=== PATIENT | female | born 1970 | race Two or more races ===

== ENCOUNTER 2016-12-13 08:24 | Inpatient (IN) | payer OTHER ==
[2016-12-13 10:34] VITALS: BMI 23.6
--- NOTE | 2016-12-13 12:00 | HP ---
CIWA Score - CIWA Score Nausea/Vomitin Muscle Tremors: 3 Anxiety: 3 Agitation: 3 Paroxysmal Sweats: 2 Orientation: 0-Oriented Tacttile Disturbances: 2-Mild Itch/Numbness/Burn Auditory Disturbances: 2-Mild Harshness/Frighten Visual Disturbances: 2-Mild Sensitivity Headache: 2-Mild CIWA-Ar Total Score: 22 Admission ROS BHS - HPI Chief Complaint: I NEED HELP TO STOP DRINKING ALCOHOL,COCAINE AND MARIJUANA Allergies/Adverse Reactions: Allergies Allergy/AdvReac Type Severity Reaction Status Date / Time green pepper Allergy Severe Swelling Verified 12/13/16 10:53 No Known Drug Allergies Allergy Verified 12/13/16 10:53 barbecue sauce Allergy Severe Swelling Uncoded 12/13/16 10:53 History of Present Illness: HIS 46 YEARS OLD FEMALE WITH ALCOHOL,COCAINE AND MARIJUANA DEPENDENCE, WITHDRAWAL SYMPTOM,NEVER BEEN IN DETOX BEFORE SYNCOPE ALCOHOL RELATED SCHIZOPHRENIA ,PTSD NICOTINE DEPENDENCE Exam Limitations: No Limitations - Ebola screening Have you traveled outside of the country in the last 21 days: No Have you had contact with anyone from an Ebola affected area: No Have you been sick,other than usual withdrawal symptoms: No - Review of Systems Constitutional: Chills, Loss of Appetite, Malaise, Night Sweats, Changes in sleep, Weakness, Unintentional Wgt. Loss EENT: reports: Nose Congestion Respiratory: reports: No Symptoms reported Cardiac: reports: No Symptoms Reported, See HPI, Chest Pain, Edema GI: reports: Diarrhea, Nausea, Poor Appetite : reports: No Symptoms Reported Musculoskeletal: reports: Back Pain, Muscle Pain Integumentary: reports: Dryness Neuro: reports: Headache, Tremors Endocrine: reports: No Symptoms Reported Hematology: reports: No Symptoms Reported Psychiatric: reports: Depressed (SCHIZOPHRENIA,PTSD) Patient History - Patient Medical History Hx Anemia: No Hx Asthma: No Hx Chronic Obstructive Pulmonary Disease (COPD): No Hx Cancer: No Hx Cardiac Disorders: No Hx Congestive Heart Failure: No Hx Hypertension: No Hx Hypercholesterolemia: No Hx Pacemaker: No HX Cerebrovascular Accident: No Hx Seizures: No Hx Dementia: No Hx Diabetes: No Hx Gastrointestinal Disorders: No Hx Liver Disease: No Hx Genitourinary Disorders: No Hx Sexually Transmitted Disorders: No Hx Renal Disease (ESRD): No Hx Thyroid Disease: No Hx Human Immunodeficiency Virus (HIV): No (LAST IN 12/06/16 NEGATIVE) Hx Hepatitis C: No Hx Depression: Yes Hx Suicide Attempt: Yes (Tried to overdose in 1991) Hx Bipolar Disorder: No Hx Schizophrenia: Yes Other Medical History: NO SUICIDAL,NO HOMICIDAL - Patient Surgical History Past Surgical History: Yes Other Surgical History: Tubal ligation in 1996 - PPD History Previous Implant?: Yes Documented Results: Negative w/proof Implanted On Prior [facility] Admission?: No PPD to be Administered?: No - Reproductive History Patient is a Female of Child Bearing Age (11 -55 yrs old): Yes Last Menstrual Period: 12/05/16 Patient : No - Smoking Cessation Smoking history: Current every day smoker Have you smoked in the past 12 months: Yes Aproximately how many cigarettes per day: 20 Hx Chewing Tobacco Use: No Initiated information on smoking cessation: Yes 'Breaking Loose' booklet given: 12/13/16 - Substance & Tx. History Hx Alcohol Use: Yes Hx Substance Use: Yes Substance Use Type: Alcohol, Cocaine, Marijuana Hx Substance Use Treatment: No - Substances Abused Alcohol Route: Oral Frequency: Daily Amount used: 6pk beer Age of first use: 15 Date of Last Use: 12/12/16 Crack Route: Smoking Frequency: Daily Amount used: $100-200 Age of first use: 27 Date of Last Use: 12/13/16 Marijuana/Hashish Route: Smoking Frequency: 1-2 times per week Amount used: 1 blunt Age of first use: 12 Date of Last Use: 12/12/16 Family Disease History - Family Disease History Family History: Denies Admission Physical Exam BHS - Vital Signs Vital Signs: Vital Signs - 24 hr 12/13/16 10:31 Temperature 97.5 F L Pulse Rate 70 Respiratory 18 Rate Blood Pressure 131/77 - Physical General Appearance: Yes: Moderate Distress, Tremorous, Irritable, Sweating, Anxious HEENTM: Yes: Nasal Congestion Respiratory: Yes: Lungs Clear Neck: Yes: Within Normal Limits Breast: Yes: Breast Exam Deferred Cardiology: Yes: Within Normal Limits, Regular Rhythm, Regular Rate, S1, S2 Abdominal: Yes: Within Normal Limits, Normal Bowel Sounds, Non Tender, Flat, Soft Genitourinary: Yes: Within Normal Limits Back: Yes: Muscle Spasm Musculoskeletal: Yes: Back pain, Muscle Pain Extremities: Yes: Tremors Neurological: Yes: 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, Fully Oriented, Alert, Motor Strength 5/5 Integumentary: Yes: Dry Lymphatic: Yes: Within Normal Limits - Diagnostic (1) Alcohol dependence with uncomplicated withdrawal Current Visit: Yes Status: Acute (2) Cocaine dependence Current Visit: Yes Status: Acute (3) Cannabis dependence Current Visit: Yes Status: Acute (4) Syncope Current Visit: Yes Status: Acute (5) Schizophrenia Current Visit: Yes Status: Acute (6) Nicotine dependence Current Visit: Yes Status: Acute Cleared for Admission [facility] - Detox or Rehab [facility] Level of Care: Medically Managed Detox Regimen/Protocol: Librium [facility] Breath Alcohol Content Breath Alcohol Content: 0 Urine Pregancy Test - Result Urine Test Results: Negative- NO Line Present Urine Drug Screen - Results Drug Screen Negative: No Urine Drug Screen Results: THC-Marijuana, HENRY-Cocaine
[2016-12-13] MEDS ORDERED: ACETAMINOPHEN 325 MG TABLET (FP) PO PRN (12:07)
[2016-12-13] MEDS ORDERED: guaiFENesin/D-METHORPHAN HB 10 ML UNIT-DOSE CUPS PO PRN (12:07)
[2016-12-13] MEDS ORDERED: hydrOXYzine PAMOATE 25 MG CAPSULE (FP) PO PRN (12:07)
[2016-12-13] MEDS ORDERED: chlordiazePOXIDE HCL 25 MG CAPSULE PO PRN (12:07)
[2016-12-13] MEDS ORDERED: P-EPHED 60MG/TRIPROLIDI 2.5MG TABLET PO PRN (12:07)
[2016-12-13] MEDS ORDERED: MAGNESIUM HYDROX 2400MG/30ML ORAL SUSPENSION 30 ML CUP PO PRN (12:07)
[2016-12-13] MEDS ORDERED: MAG HYDROX/AL HYDROX/SIMETH 30 ML UNIT-DOSE CUP PO PRN (12:07)
[2016-12-13] MEDS ORDERED: MENTHOL/PHENOL 1 EACH UD MM PRN (12:07)
[2016-12-13] MEDS ORDERED: LOPERAMIDE HCL 2 MG CAPSULE PO PRN (12:07)
[2016-12-13] MEDS ORDERED: MAGNESIUM CITRATE 300 ML BOTTLE PO PRN (12:07)
[2016-12-13] MEDS ORDERED: diphenhydrAMINE HCL 50 MG CAPSULE PO PRN (12:07)
[2016-12-13] MEDS ORDERED: IBUPROFEN 400 MG TABLET (FP) PO PRN (12:07)
[2016-12-13] MEDS ORDERED: chlordiazePOXIDE HCL 25 MG CAPSULE PO ONE (12:16)
--- NOTE | 2016-12-13 13:39 | CONSULT ---
[facility] Psychiatric Consult - Data Date of interview: 12/13/16 Admission source: [facility] Identifying data: This is 46 years old female with psychiatric hospitalization history , history of Schizophrenia, intoxicated with: Alcohol, Cannabis, Crack and Nicotine Substance Abuse History: Smoking history: Current every day smoker. Have you smoked in the past 12 months: Yes. Aproximately how many cigarettes per day: 20. Hx Chewing Tobacco Use: No. Initiated information on smoking cessation: Yes. 'Breaking Loose' booklet given: 12/13/16. - Substance & Tx. History. Hx Alcohol Use: Yes. Hx Substance Use: Yes. Substance Use Type: Alcohol, Cocaine , Marijuana. Hx Substance Use Treatment: No. - Substances Abused. Alcohol. Route: Oral. Frequency: Daily. Amount used: 6pk beer. Age of first use: 15. Date of Last Use: 12/12/16. Crack. Route: Smoking. Frequency: Daily. Amount used: $100-200. Age of first use: 27. Date of Last Use: . Marijuana/Hashish. Route: Smoking. Frequency: 1-2 times per week. Amount used: 1 blunt. Age of first use: 12. Date of Last Use: 12/12/16 Medical History: Syncope history, Psychiatric History: Patient reports history of Schizophrenia with most recent psyhiatric hospitalization on more then 5 years ago, currently stable on: Seroqiel 50mg poqd. Haldolo 1mg po qhs. Vistaril 100mg po qhs Physical/Sexual Abuse/Trauma History: Denies Additional Comment: Seroqiel 50mg poqd. Haldolo 1mg po qhs. Vistaril 100mg po qhs Mental Status Exam - Mental Status Exam Alert and Oriented to: Person Cognitive Function: Fair Patient Appearance: Unkempt Mood: Sad Affect: Flat Patient Behavior: Sedated Speech Pattern: Delayed Voice Loudness: Mildly Soft/Quiet Thought Process: Circumstantial Thought Disorder: Being Controlled Hallucinations: Denies Suicidal Ideation: Denies Homicidal Ideation: Denies Insight/Judgement: Fair Sleep: Difficulty falling asleep Appetite: Weight loss Muscle strength/Tone: Normal Gait/Station: Shuffling Additional Comments: Seroqiel 50mg poqd. Haldolo 1mg po qhs. Vistaril 100mg po qhs Psychiatric Findings - Problem List ([place] 1, 2,3) (1) Alcohol dependence with uncomplicated withdrawal Current Visit: Yes Status: Acute (2) Cannabis dependence Current Visit: Yes Status: Acute (3) Cocaine dependence Current Visit: Yes Status: Acute (4) Nicotine dependence Current Visit: Yes Status: Acute (5) Schizophrenia Current Visit: Yes Status: Acute (6) Drug-induced mood disorder Current Visit: Yes Status: Acute - Initial Treatment Plan Initial Treatment Plan: Seroqiel 50mg poqd. Haldolo 1mg po qhs. Vistaril 100mg po qhs
[2016-12-13 15:29] LABS: URINE APPEARANCE SLCLOUDY; URINE BILIRUBIN NEGATIVE (NEGATIVE); URINE COLOR YELLOW; URINE GLUCOSE (UA) NEGATIVE (NEGATIVE); URINE KETONE NEGATIVE (NEGATIVE); URINE NITRITE NEGATIVE (NEGATIVE); URINE PROTEIN NEGATIVE (NEGATIVE); URINE UROBILINOGEN NEGATIVE E.U./dl (0.2-1.0)
[2016-12-13 15:30] LABS: URINE BLOOD 2+ (NEGATIVE); URINE LEUK ESTERASE TRACE (NEGATIVE)
[2016-12-13 15:38] LABS: URINE MUCUS RARE; URINE RBC 5 /hpf (0-3); URINE WBC 4 /hpf (3-5)
[2016-12-13] MEDS: chlordiazePOXIDE HCL 25 MG CAPSULE PO SCH ×2 (17:33→22:18)
[2016-12-13] MEDS: THIAMINE HCL 100 MG TABLET (FP) PO SCH (22:18)
[2016-12-13] MEDS: hydrOXYzine PAMOATE 50 MG CAPSULE (FP) PO SCH (22:18)
[2016-12-13] MEDS: HALOPERIDOL 1 MG TABLET (FP) PO PRN (22:20)
[2016-12-14] MEDS: chlordiazePOXIDE HCL 25 MG CAPSULE PO SCH ×4 (05:16→22:17)
[2016-12-14 10:01] LABS: MCH 21.3 pg (25.7-33.7); MCHC 30.1 g/dl (32.0-36.0); MEAN CELL VOLUME 70.5 fl (80-96); MEAN PLT VOLUME 9.2 fl (7.5-11.1); PLATELET COUNT 249 K/MM3 (134-434); RDW 22.7 % (11.6-15.6); WHITE BLOOD COUNT 7.3 K/mm3 (4.0-10.0)
[2016-12-14 10:12] LABS: ALBUMIN 3.4 g/dl (3.4-5.0); CALCIUM 8.7 mg/dL (8.5-10.1)
[2016-12-14] MEDS: QUEtiapine FUMARATE 50 MG TABLET PO SCH (10:16)
[2016-12-14] MEDS: PRENATAL VITAMINS W/ FOLIC ACID TABLET (FP) PO SCH (10:18)
[2016-12-14 10:22] LABS: BILIRUBIN,TOTAL 0.2 mg/dL (0.2-1.0); CREATININE 1.1 mg/dL (0.55-1.02); TOT PROT 7.1 g/dl (6.4-8.2)
--- NOTE | 2016-12-14 10:49 | PN ---
S CIWA - CIWA Score Nausea/Vomitin Muscle Tremors: 3 Anxiety: 3 Agitation: 3 Paroxysmal Sweats: 1-Minimal Palms Moist Orientation: 0-Oriented Tacttile Disturbances: 1-Very Mild Itch/Numbness Auditory Disturbances: 1-Very Mild Visual Disturbances: 1-Very Mild Sensitivity Headache: 2-Mild CIWA-Ar Total Score: 18 BHS Progress Note (SOAP) Subjective: ALERT,IRRITABLE,ANXIOUS,INTERRUPTED SLEEP,TREMOR,PAIN IN THE BODY Objective: 12/14/16 10:46 Vital Signs Temperature 97.9 F 12/14/16 10:16 Pulse Rate 69 12/14/16 10:16 Respiratory Rate 18 12/14/16 10:16 Blood Pressure 125/77 12/14/16 10:16 O2 Sat by Pulse Oximetry (%) EKG NSR WITH SINUS ARRHYTHMIA NO CHEST PAIN,NO SOB,NO DIZZINESS Laboratory Last Values WBC 7.3 K/mm3 (4.0-10.0) 12/14/16 06:30 RBC 3.95 M/mm3 (3.60-5.2) 12/14/16 06:30 Hgb 8.4 GM/dL (10.7-15.3) L 12/14/16 06:30 Hct 27.8 % (32.4-45.2) L 12/14/16 06:30 MCV 70.5 fl (80-96) L 12/14/16 06:30 MCHC 30.1 g/dl (32.0-36.0) L 12/14/16 06:30 RDW 22.7 % (11.6-15.6) H 12/14/16 06:30 Plt Count 249 K/MM3 (134-434) 12/14/16 06:30 MPV 9.2 fl (7.5-11.1) 12/14/16 06:30 Sodium 146 mmol/L (136-145) H 12/14/16 06:30 Potassium 3.9 mmol/L (3.5-5.1) 12/14/16 06:30 Chloride 110 mmol/L (98-107) H 12/14/16 06:30 Carbon Dioxide 28 mmol/L (21-32) 12/14/16 06:30 Anion Gap 8 (8-16) 12/14/16 06:30 BUN 14 mg/dL (7-18) 12/14/16 06:30 Creatinine 1.1 mg/dL (0.55-1.02) H 12/14/16 06:30 Creat Clearance w eGFR 53.24 (>60) 12/14/16 06:30 Random Glucose 97 mg/dL (74-106) 12/14/16 06:30 Calcium 8.7 mg/dL (8.5-10.1) 12/14/16 06:30 Total Bilirubin 0.2 mg/dL (0.2-1.0) 12/14/16 06:30 AST 24 U/L (15-37) 12/14/16 06:30 ALT 24 U/L (12-78) 12/14/16 06:30 Alkaline Phosphatase 56 U/L (45-117) 12/14/16 06:30 Total Protein 7.1 g/dl (6.4-8.2) 12/14/16 06:30 Albumin 3.4 g/dl (3.4-5.0) 12/14/16 06:30 Urine Color Yellow 12/13/16 13:10 Urine Appearance Slcloudy 12/13/16 13:10 Urine pH 5.0 (5.0-8.0) 12/13/16 13:10 Ur Specific [place] 1.027 (1.001-1.035) 12/13/16 13:10 Urine Protein Negative (NEGATIVE) 12/13/16 13:10 Urine Glucose (UA) Negative (NEGATIVE) 12/13/16 13:10 Urine Ketones Negative (NEGATIVE) 12/13/16 13:10 Urine Blood 2+ (NEGATIVE) H 12/13/16 13:10 Urine Nitrite Negative (NEGATIVE) 12/13/16 13:10 Urine Bilirubin Negative (NEGATIVE) 12/13/16 13:10 Urine Urobilinogen Negative E.U./dl (0.2-1.0) 12/13/16 13:10 Ur Leukocyte Esterase Trace (NEGATIVE) H 12/13/16 13:10 Urine RBC 5 /hpf (0-3) 12/13/16 13:10 Urine WBC 4 /hpf (3-5) 12/13/16 13:10 Ur Epithelial Cells Few /hpf (FEW) 12/13/16 13:10 Urine Mucus Rare 12/13/16 13:10 Assessment: 12/14/16 10:48 WITHDRAWAL SYMPTOM Plan: CONTINUE DETOX,HISTORY OF ANEMIA,FERROUS SULFATE 325 MG PO TID
[2016-12-14 10:51] LABS: HYPOCHROMIA 2+; PLATELET ESTIMATE ADEQUATE (NORMAL); POLYCHROMASIA FEW
[2016-12-14 10:52] LABS: ANISOCYTOSIS 3+; BURR CELLS F; OVALOCYTES FEW
--- NOTE | 2016-12-14 11:13 | EKG ---
Test Reason : Blood Pressure : / mmHG Vent. Rate : 065 BPM Atrial Rate : 065 BPM P-R Int : 158 ms QRS Dur : 090 ms QT Int : 390 ms P-R-T Axes : 056 050 056 degrees QTc Int : 405 ms NORMAL SINUS RHYTHM WITH SINUS ARRHYTHMIA MINIMAL VOLTAGE CRITERIA FOR LVH, MAY BE NORMAL VARIANT NONSPECIFIC T WAVE ABNORMALITY ABNORMAL ECG NO PREVIOUS ECGS AVAILABLE Confirmed by ZEINA IRBY MD ([id number]) on 12/14/2016 11:13:31 AM Referred By: Confirmed By:ZEINA IRBY MD
[2016-12-14] MEDS: FERROUS SO4 325 MG TABLET (FP) PO SCH ×2 (12:55→18:00)
[2016-12-14] MEDS: THIAMINE HCL 100 MG TABLET (FP) PO SCH (22:16)
[2016-12-14] MEDS: hydrOXYzine PAMOATE 50 MG CAPSULE (FP) PO SCH (22:16)
[2016-12-14] MEDS: HALOPERIDOL 1 MG TABLET (FP) PO PRN (22:16)
[2016-12-15] MEDS: chlordiazePOXIDE HCL 25 MG CAPSULE PO SCH ×2 (05:29→10:07)
[2016-12-15] MEDS: FERROUS SO4 325 MG TABLET (FP) PO SCH ×3 (07:24→18:17)
--- NOTE | 2016-12-15 09:31 | PN ---
S CIWA - CIWA Score Nausea/Vomitin Muscle Tremors: 3 Anxiety: 2 Agitation: 2 Paroxysmal Sweats: 1-Minimal Palms Moist Orientation: 0-Oriented Tacttile Disturbances: 1-Very Mild Itch/Numbness Auditory Disturbances: 1-Very Mild Visual Disturbances: 1-Very Mild Sensitivity Headache: 2-Mild CIWA-Ar Total Score: 16 S Progress Note (SOAP) Subjective: ALERT,IRRITABLE,ANXIOUS,INTERRUPTED SLEEP,TREMOR Objective: 12/15/16 09:28 Vital Signs Temperature 97.1 F L 12/15/16 06:00 Pulse Rate 63 12/15/16 06:00 Respiratory Rate 16 12/15/16 06:00 Blood Pressure 129/78 12/15/16 06:00 O2 Sat by Pulse Oximetry (%) Laboratory Last Values WBC 7.3 K/mm3 (4.0-10.0) 12/14/16 06:30 Corrected WBC (auto) 3.65 K/mm3 12/14/16 06:30 RBC 3.95 M/mm3 (3.60-5.2) 12/14/16 06:30 Hgb 8.4 GM/dL (10.7-15.3) L 12/14/16 06:30 Hct 27.8 % (32.4-45.2) L 12/14/16 06:30 MCV 70.5 fl (80-96) L 12/14/16 06:30 MCHC 30.1 g/dl (32.0-36.0) L 12/14/16 06:30 RDW 22.7 % (11.6-15.6) H 12/14/16 06:30 Plt Count 249 K/MM3 (134-434) 12/14/16 06:30 MPV 9.2 fl (7.5-11.1) 12/14/16 06:30 Nucleated RBCs Outpatient Scheduler 12/14/16 06:30 Platelet Estimate Adequate (NORMAL) 12/14/16 06:30 Platelet Comment No clumping noted 12/14/16 06:30 Polychromasia Few 12/14/16 06:30 Hypochromic-Microcytic 2+ 12/14/16 06:30 Anisocytosis 3+ 12/14/16 06:30 Ovalocytes Few 12/14/16 06:30 [place] Cells F 12/14/16 06:30 Sodium 146 mmol/L (136-145) H 12/14/16 06:30 Potassium 3.9 mmol/L (3.5-5.1) 12/14/16 06:30 Chloride 110 mmol/L (98-107) H 12/14/16 06:30 Carbon Dioxide 28 mmol/L (21-32) 12/14/16 06:30 Anion Gap 8 (8-16) 12/14/16 06:30 BUN 14 mg/dL (7-18) 12/14/16 06:30 Creatinine 1.1 mg/dL (0.55-1.02) H 12/14/16 06:30 Creat Clearance w eGFR 53.24 (>60) 12/14/16 06:30 Random Glucose 97 mg/dL (74-106) 12/14/16 06:30 Calcium 8.7 mg/dL (8.5-10.1) 12/14/16 06:30 Total Bilirubin 0.2 mg/dL (0.2-1.0) 12/14/16 06:30 AST 24 U/L (15-37) 12/14/16 06:30 ALT 24 U/L (12-78) 12/14/16 06:30 Alkaline Phosphatase 56 U/L (45-117) 12/14/16 06:30 Total Protein 7.1 g/dl (6.4-8.2) 12/14/16 06:30 Albumin 3.4 g/dl (3.4-5.0) 12/14/16 06:30 Urine Color Yellow 12/13/16 13:10 Urine Appearance Slcloudy 12/13/16 13:10 Urine pH 5.0 (5.0-8.0) 12/13/16 13:10 Ur Specific [place] 1.027 (1.001-1.035) 12/13/16 13:10 Urine Protein Negative (NEGATIVE) 12/13/16 13:10 Urine Glucose (UA) Negative (NEGATIVE) 12/13/16 13:10 Urine Ketones Negative (NEGATIVE) 12/13/16 13:10 Urine Blood 2+ (NEGATIVE) H 12/13/16 13:10 Urine Nitrite Negative (NEGATIVE) 12/13/16 13:10 Urine Bilirubin Negative (NEGATIVE) 12/13/16 13:10 Urine Urobilinogen Negative E.U./dl (0.2-1.0) 12/13/16 13:10 Ur Leukocyte Esterase Trace (NEGATIVE) H 12/13/16 13:10 Urine RBC 5 /hpf (0-3) 12/13/16 13:10 Urine WBC 4 /hpf (3-5) 12/13/16 13:10 Ur Epithelial Cells Few /hpf (FEW) 12/13/16 13:10 Urine Mucus Rare 12/13/16 13:10 RPR Titer Nonreactive (NONREACTIVE) 12/14/16 06:30 12/15/16 09:30 Assessment: 12/15/16 09:30 WITHDRAWAL SYMPTOM Plan: CONTINUE DETOX
[2016-12-15] MEDS: QUEtiapine FUMARATE 50 MG TABLET PO SCH (10:07)
[2016-12-15] MEDS: PRENATAL VITAMINS W/ FOLIC ACID TABLET (FP) PO SCH (10:07)
[2016-12-15] MEDS: chlordiazePOXIDE 5 MG CAPSULE PO SCH ×2 (18:17→22:25)
[2016-12-15] MEDS: THIAMINE HCL 100 MG TABLET (FP) PO SCH (22:21)
[2016-12-15] MEDS: hydrOXYzine PAMOATE 50 MG CAPSULE (FP) PO SCH (22:21)
[2016-12-16] MEDS: chlordiazePOXIDE 5 MG CAPSULE PO SCH ×2 (05:42→10:08)
[2016-12-16] MEDS: FERROUS SO4 325 MG TABLET (FP) PO SCH ×3 (07:27→17:41)
[2016-12-16] MEDS: QUEtiapine FUMARATE 50 MG TABLET PO SCH (10:08)
[2016-12-16] MEDS: PRENATAL VITAMINS W/ FOLIC ACID TABLET (FP) PO SCH (10:08)
--- NOTE | 2016-12-16 10:30 | PN ---
S Progress Note (SOAP) Subjective: Sweating,interrupted sleep,restless Objective: 12/16/16 10:28 Vital Signs - 8 hr 12/16/16 06:00 Temperature 97.3 F L Pulse Rate 59 L Respiratory 18 Rate Blood Pressure 129/78 Laboratory Last Values WBC 7.3 K/mm3 (4.0-10.0) 12/14/16 06:30 Corrected WBC (auto) 3.65 K/mm3 12/14/16 06:30 RBC 3.95 M/mm3 (3.60-5.2) 12/14/16 06:30 Hgb 8.4 GM/dL (10.7-15.3) L 12/14/16 06:30 Hct 27.8 % (32.4-45.2) L 12/14/16 06:30 MCV 70.5 fl (80-96) L 12/14/16 06:30 MCHC 30.1 g/dl (32.0-36.0) L 12/14/16 06:30 RDW 22.7 % (11.6-15.6) H 12/14/16 06:30 Plt Count 249 K/MM3 (134-434) 12/14/16 06:30 MPV 9.2 fl (7.5-11.1) 12/14/16 06:30 Nucleated RBCs University Administrator 12/14/16 06:30 Platelet Estimate Adequate (NORMAL) 12/14/16 06:30 Platelet Comment No clumping noted 12/14/16 06:30 Polychromasia Few 12/14/16 06:30 Hypochromic-Microcytic 2+ 12/14/16 06:30 Anisocytosis 3+ 12/14/16 06:30 Ovalocytes Few 12/14/16 06:30 [place] Cells F 12/14/16 06:30 Sodium 146 mmol/L (136-145) H 12/14/16 06:30 Potassium 3.9 mmol/L (3.5-5.1) 12/14/16 06:30 Chloride 110 mmol/L (98-107) H 12/14/16 06:30 Carbon Dioxide 28 mmol/L (21-32) 12/14/16 06:30 Anion Gap 8 (8-16) 12/14/16 06:30 BUN 14 mg/dL (7-18) 12/14/16 06:30 Creatinine 1.1 mg/dL (0.55-1.02) H 12/14/16 06:30 Creat Clearance w eGFR 53.24 (>60) 12/14/16 06:30 Random Glucose 97 mg/dL (74-106) 12/14/16 06:30 Calcium 8.7 mg/dL (8.5-10.1) 12/14/16 06:30 Total Bilirubin 0.2 mg/dL (0.2-1.0) 12/14/16 06:30 AST 24 U/L (15-37) 12/14/16 06:30 ALT 24 U/L (12-78) 12/14/16 06:30 Alkaline Phosphatase 56 U/L (45-117) 12/14/16 06:30 Total Protein 7.1 g/dl (6.4-8.2) 12/14/16 06:30 Albumin 3.4 g/dl (3.4-5.0) 12/14/16 06:30 Urine Color Yellow 12/13/16 13:10 Urine Appearance Slcloudy 12/13/16 13:10 Urine pH 5.0 (5.0-8.0) 12/13/16 13:10 Ur Specific [place] 1.027 (1.001-1.035) 12/13/16 13:10 Urine Protein Negative (NEGATIVE) 12/13/16 13:10 Urine Glucose (UA) Negative (NEGATIVE) 12/13/16 13:10 Urine Ketones Negative (NEGATIVE) 12/13/16 13:10 Urine Blood 2+ (NEGATIVE) H 12/13/16 13:10 Urine Nitrite Negative (NEGATIVE) 12/13/16 13:10 Urine Bilirubin Negative (NEGATIVE) 12/13/16 13:10 Urine Urobilinogen Negative E.U./dl (0.2-1.0) 12/13/16 13:10 Ur Leukocyte Esterase Trace (NEGATIVE) H 12/13/16 13:10 Urine RBC 5 /hpf (0-3) 12/13/16 13:10 Urine WBC 4 /hpf (3-5) 12/13/16 13:10 Ur Epithelial Cells Few /hpf (FEW) 12/13/16 13:10 Urine Mucus Rare 12/13/16 13:10 RPR Titer Nonreactive (NONREACTIVE) 12/14/16 06:30 labs noted,pt. is on feosol for fe++ deficiency anemia Assessment: 12/16/16 10:29 Withdrawal sx. Plan: Continue detox
[2016-12-16] MEDS: chlordiazePOXIDE HCL 10 MG CAPSULE PO SCH ×2 (17:41→22:17)
[2016-12-16] MEDS: HALOPERIDOL 1 MG TABLET (FP) PO PRN (22:17)
[2016-12-16] MEDS: hydrOXYzine PAMOATE 50 MG CAPSULE (FP) PO SCH (22:17)
[2016-12-16] MEDS: THIAMINE HCL 100 MG TABLET (FP) PO SCH (22:58)
[2016-12-16] MEDS ORDERED: PRAZOSIN HCL 1 MG CAPSULE PO ONE (23:16)
[2016-12-17] MEDS: chlordiazePOXIDE HCL 10 MG CAPSULE PO SCH ×2 (05:12→10:18)
[2016-12-17 05:42] VITALS: BP 115/72; PULSE 75; TEMP 98.3
[2016-12-17] MEDS: FERROUS SO4 325 MG TABLET (FP) PO SCH (07:56)
--- NOTE | 2016-12-17 08:48 | DS ---
[facility] Detox Discharge Summary Admission Date: 12/13/16 Discharge Date: 12/17/16 - History Present History: Alcohol Dependence, Cannabis Dependence, Cocaine Dependence - Physical Exam Results Vital Signs: Vital Signs Temperature 98.3 F 12/17/16 05:42 Pulse Rate 75 12/17/16 05:42 Respiratory Rate 18 12/17/16 05:42 Blood Pressure 115/72 12/17/16 05:42 O2 Sat by Pulse Oximetry (%) - Treatment Hospital Course: Detox Protocol Followed, Detoxed Safely, Responded well, Discharged Condition Good - Medication Discharge Medications: Ambulatory Orders Haloperidol [Haldol -] 1 mg PO HS 12/13/16 Haloperidol [Haldol -] 1 mg PO HS PRN #30 tablet 12/13/16 Hydroxyzine HCl [Atarax -] 100 mg PO HS 12/13/16 Hydroxyzine Pamoate [Vistaril -] 100 mg PO HS #30 capsule 12/13/16 Prazosin HCl [Minipress -] 2 mg PO HS 12/13/16 Quetiapine Fumarate [Seroquel -] 50 mg PO DAILY #30 tablet 12/13/16 Sertraline HCl [Zoloft -] 50 mg PO DAILY 12/13/16 - Diagnosis (1) Alcohol dependence with uncomplicated withdrawal Current Visit: Yes Status: Chronic (2) Cannabis dependence Current Visit: Yes Status: Chronic (3) Cocaine dependence Current Visit: Yes Status: Chronic Qualifiers: Substance use status: uncomplicated Qualified Code(s): F14.20 - Cocaine dependence, uncomplicated (4) Drug-induced mood disorder Current Visit: Yes Status: Chronic (5) Nicotine dependence Current Visit: Yes Status: Chronic Qualifiers: Nicotine product type: cigarettes Substance use status: uncomplicated Qualified Code(s): F17.210 - Nicotine dependence, cigarettes, uncomplicated (6) Schizophrenia Current Visit: Yes Status: Chronic Qualifiers: Schizophrenia type: unspecified Qualified Code(s): F20.9 - Schizophrenia, unspecified (7) Syncope Current Visit: Yes Status: Chronic - AMA Did Patient Leave Against Medical Advice: No
[2016-12-17] MEDS: PRENATAL VITAMINS W/ FOLIC ACID TABLET (FP) PO SCH (10:16)
[2016-12-17] MEDS: QUEtiapine FUMARATE 50 MG TABLET PO SCH (10:17)
== END 2016-12-17 11:38 | disposition home or self-care (01) | DRG 774 ==
LOC: YASAS 08:24 → Y6N 11:35
PROVIDERS: ADMIT Internal Medicine; ATTEND Internal Medicine
PROC: HZ2ZZZZ Detoxification Services for Substance Abuse Treatment (ICD-10-PCS; principal; 2016-12-17)
DX: F10.230 Alcohol dependence with withdrawal, uncomplicated (principal); F14.20 Cocaine dependence, uncomplicated; F12.20 Cannabis dependence, uncomplicated; F17.210 Nicotine dependence, cigarettes, uncomplicated; F19.24 Other psychoactive substance dependence with psychoactive substance-induced mood disorder; F20.9 Schizophrenia, unspecified; R55 Syncope and collapse
CPT/HCPCS: 36415; 80053; 81003; 81015; 85027; 86593; 93005; 93010

== ENCOUNTER 2016-12-25 14:05 | Inpatient (IN) | payer OTHER ==
[2016-12-25 15:47] VITALS: BMI 22.6
--- NOTE | 2016-12-25 17:42 | HP ---
[facility] Assess/Revision - Admission History Admitted to Rehab from: [facility] Date of Admission to Rehab: 12/25/16 - Vital signs Vital Signs: Vital Signs Period Temp Pulse Resp BP Sys/Lynn Pulse Ox Last 24 Hr 97.1 F 72 18 121/74 - Findings Detox History & Physical reviewed: Yes Concur with findings: Yes Comments/Additional Findings: DISCHARGED FROM DETOX 12/17/16, RETURN FOR REHAB 12/25/16, HAD NEGATIVE PPD ON 11/2016 WITH COPY OF RESULT IN CHART, DENIES MEDICAL ISSUE.
[2016-12-25] MEDS ORDERED: IBUPROFEN 400 MG TABLET (FP) PO PRN (17:46)
[2016-12-25] MEDS ORDERED: diphenhydrAMINE HCL 50 MG CAPSULE PO PRN (17:46)
[2016-12-25] MEDS ORDERED: MENTHOL/PHENOL 1 EACH UD MM PRN (17:46)
[2016-12-25] MEDS ORDERED: MAG HYDROX/AL HYDROX/SIMETH 30 ML UNIT-DOSE CUP PO PRN (17:46)
[2016-12-25] MEDS ORDERED: MAGNESIUM CITRATE 300 ML BOTTLE PO PRN (17:46)
[2016-12-25] MEDS ORDERED: ACETAMINOPHEN 325 MG TABLET (FP) PO PRN (17:46)
[2016-12-25] MEDS ORDERED: LOPERAMIDE HCL 2 MG CAPSULE PO PRN (17:46)
[2016-12-25] MEDS ORDERED: guaiFENesin/D-METHORPHAN HB 10 ML UNIT-DOSE CUPS PO PRN (17:46)
[2016-12-25] MEDS ORDERED: MAGNESIUM HYDROX 2400MG/30ML ORAL SUSPENSION 30 ML CUP PO PRN (17:46)
[2016-12-25] MEDS ORDERED: P-EPHED 60MG/TRIPROLIDI 2.5MG TABLET PO PRN (17:46)
[2016-12-25] MEDS ORDERED: NICOTINE POLACRILEX 4 MG GUM BUC PRN (17:52)
[2016-12-25] MEDS: THIAMINE HCL 100 MG TABLET (FP) PO SCH (21:07)
[2016-12-25] MEDS: HALOPERIDOL 1 MG TABLET (FP) PO SCH (21:07)
[2016-12-25] MEDS: hydrOXYzine PAMOATE 50 MG CAPSULE (FP) PO SCH (21:07)
[2016-12-25 23:01] LABS: URINE APPEARANCE CLOUDY; URINE BILIRUBIN NEGATIVE (NEGATIVE); URINE COLOR DKYELLOW; URINE GLUCOSE (UA) NEGATIVE (NEGATIVE); URINE KETONE TRACE (NEGATIVE); URINE LEUK ESTERASE NEGATIVE (NEGATIVE); URINE NITRITE POSITIVE (NEGATIVE); URINE UROBILINOGEN NEGATIVE E.U./dl (0.2-1.0)
[2016-12-25 23:02] LABS: URINE BLOOD 1+ (NEGATIVE); URINE PROTEIN 1+ (NEGATIVE)
[2016-12-25 23:15] LABS: CALCIUM OXALATE CRYSTALS FEW /hpf (NONE SEEN); URINE BACTERIA RARE /hpf (NONE SEEN); URINE MUCUS MODERATE; URINE RBC 17 /hpf (0-3); URINE WBC 7 /hpf (3-5)
[2016-12-26] MEDS: NICOTINE 21 MG/24 HOURS TOPICAL PATCH TD SCH (09:58)
[2016-12-26] MEDS: QUEtiapine FUMARATE 50 MG TABLET PO SCH (09:59)
[2016-12-26] MEDS: SERTRALINE HCL 50 MG TABLET (FP) PO SCH (09:59)
[2016-12-26] MEDS: PRENATAL VITAMINS W/ FOLIC ACID TABLET (FP) PO SCH (09:59)
[2016-12-26 10:16] LABS: MCH 21.6 pg (25.7-33.7); MCHC 30.3 g/dl (32.0-36.0); MEAN CELL VOLUME 71.3 fl (80-96); MEAN PLT VOLUME 9.5 fl (7.5-11.1); PLATELET COUNT 260 K/MM3 (134-434); RDW 23.4 % (11.6-15.6); WHITE BLOOD COUNT 6.3 K/mm3 (4.0-10.0)
[2016-12-26 10:32] LABS: BILIRUBIN,TOTAL 0.2 mg/dL (0.2-1.0); CALCIUM 8.8 mg/dL (8.5-10.1); CREATININE 1.1 mg/dL (0.55-1.02); TOT PROT 7.7 g/dl (6.4-8.2)
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
[2016-12-26 12:11] LABS: ANISOCYTOSIS 2+; HYPOCHROMIA 4+; MICROCYTOSIS 2+; OVALOCYTES 1+; POIKILOCYTOSIS 1+; TEAR DROP CELLS RARE
[2016-12-26 12:12] LABS: TARGET CELLS 1+
[2016-12-26] MEDS ORDERED: HALOPERIDOL 5 MG TABLET (FP) PO PRN (13:05)
--- NOTE | 2016-12-26 16:11 | EKG ---
Test Reason : Blood Pressure : / mmHG Vent. Rate : 071 BPM Atrial Rate : 071 BPM P-R Int : 162 ms QRS Dur : 084 ms QT Int : 388 ms P-R-T Axes : 070 056 062 degrees QTc Int : 421 ms NORMAL SINUS RHYTHM NONSPECIFIC T WAVE ABNORMALITY ABNORMAL ECG WHEN COMPARED WITH ECG OF 13-DEC-2016 12:53, NO SIGNIFICANT CHANGE WAS FOUND Confirmed by CLAUDETTE HSU MD ([id number]) on 12/26/2016 4:11:32 PM Referred By: Confirmed By:CLAUDETTE HSU MD
[2016-12-26] MEDS: HALOPERIDOL 1 MG TABLET (FP) PO SCH (21:22)
[2016-12-26] MEDS: THIAMINE HCL 100 MG TABLET (FP) PO SCH (21:22)
[2016-12-26] MEDS: hydrOXYzine PAMOATE 50 MG CAPSULE (FP) PO SCH (21:22)
[2016-12-26] MEDS: BENZTROPINE MESYLATE 1 MG TABLET (FP) PO SCH (21:24)
[2016-12-26] MEDS: PRAZOSIN HCL 1 MG CAPSULE PO SCH (21:24)
[2016-12-26] MEDS ORDERED: PT OWN MED DRAWER 7, Y5N ONE (21:25)
[2016-12-27] MEDS: SERTRALINE HCL 50 MG TABLET (FP) PO SCH (10:05)
[2016-12-27] MEDS: BENZTROPINE MESYLATE 1 MG TABLET (FP) PO SCH ×2 (10:05→21:23)
[2016-12-27] MEDS: PRENATAL VITAMINS W/ FOLIC ACID TABLET (FP) PO SCH (10:05)
[2016-12-27] MEDS: QUEtiapine FUMARATE 50 MG TABLET PO SCH (10:05)
[2016-12-27] MEDS: NICOTINE 21 MG/24 HOURS TOPICAL PATCH TD SCH (10:07)
[2016-12-27] MEDS: HALOPERIDOL 1 MG TABLET (FP) PO SCH (21:21)
[2016-12-27] MEDS: hydrOXYzine PAMOATE 50 MG CAPSULE (FP) PO SCH (21:21)
[2016-12-27] MEDS: THIAMINE HCL 100 MG TABLET (FP) PO SCH (21:21)
[2016-12-27] MEDS: PRAZOSIN HCL 1 MG CAPSULE PO SCH (21:22)
[2016-12-28] MEDS: BENZTROPINE MESYLATE 1 MG TABLET (FP) PO SCH ×2 (09:51→21:25)
[2016-12-28] MEDS: SERTRALINE HCL 50 MG TABLET (FP) PO SCH (09:52)
[2016-12-28] MEDS: PRENATAL VITAMINS W/ FOLIC ACID TABLET (FP) PO SCH (09:52)
[2016-12-28] MEDS: QUEtiapine FUMARATE 50 MG TABLET PO SCH (09:52)
[2016-12-28] MEDS: NICOTINE 21 MG/24 HOURS TOPICAL PATCH TD SCH (09:53)
[2016-12-28] MEDS: hydrOXYzine PAMOATE 50 MG CAPSULE (FP) PO SCH (21:23)
[2016-12-28] MEDS: HALOPERIDOL 1 MG TABLET (FP) PO SCH (21:23)
[2016-12-28] MEDS: THIAMINE HCL 100 MG TABLET (FP) PO SCH (21:23)
[2016-12-28] MEDS: PRAZOSIN HCL 1 MG CAPSULE PO SCH (21:23)
[2016-12-29] MEDS: BENZTROPINE MESYLATE 1 MG TABLET (FP) PO SCH ×2 (09:58→21:16)
[2016-12-29] MEDS: QUEtiapine FUMARATE 50 MG TABLET PO SCH (09:58)
[2016-12-29] MEDS: SERTRALINE HCL 50 MG TABLET (FP) PO SCH (09:58)
[2016-12-29] MEDS: PRENATAL VITAMINS W/ FOLIC ACID TABLET (FP) PO SCH (09:58)
[2016-12-29] MEDS: NICOTINE 21 MG/24 HOURS TOPICAL PATCH TD SCH (09:58)
[2016-12-29] MEDS: hydrOXYzine PAMOATE 50 MG CAPSULE (FP) PO SCH (21:16)
[2016-12-29] MEDS: HALOPERIDOL 1 MG TABLET (FP) PO SCH (21:17)
[2016-12-29] MEDS: THIAMINE HCL 100 MG TABLET (FP) PO SCH (21:17)
[2016-12-29] MEDS: PRAZOSIN HCL 1 MG CAPSULE PO SCH (21:17)
[2016-12-30 06:43] VITALS: BP 111/71; PULSE 66; TEMP 97.6
--- NOTE | 2016-12-30 07:50 | PN ---
S Progress Note Note: ASKED TO SEE CLIENT FOR C/O NUMBNESS/TINGLING TO R ARM. PATIENT C/O INTERMITTENT NUMBNESS AND TINGLING FOR DAYS NOW ASSOCIATED WITH SOME DIZZINESS. DENIES CHEST PAIN, SOB, VISUAL CHANGES, FEVER, CHILLS LYING IN BED A/0 X3 OOB TO DAY ROOM EARLIER H- NCAT / NO FACIAL DROOPING OR SLURRING OF WORDS NEURO CN 1-12 INTACT R ARM- FROM W/O LIMITATION STRENGTH 5/5 CV RRR Vital Signs Temperature 97.6 F 12/30/16 06:40 Pulse Rate 66 12/30/16 06:40 Respiratory Rate 18 12/30/16 06:40 Blood Pressure 111/71 12/30/16 06:40 O2 Sat by Pulse Oximetry (%) BGM 100 MG/DL AFTER CUP OF COFFEE WITH SUGAR AND MILK A- R ARM NUMBNESS, ? HYPOGLYCEMIA P- CONT TO MONITOR FOR WORSENING SX'S PT NOW OOB AMBULATING IN HW AND IN DR PT REQUESTING TO HAVE PSYCH MEDS REEVALUATED SHE FEELS IT IS RELATED TO HER MEDS WILL HAVE DR. Perales REEVALUATE MEDS. AM BGM X 3 DAYS
[2016-12-30] MEDS: BENZTROPINE MESYLATE 1 MG TABLET (FP) PO SCH (09:40)
[2016-12-30] MEDS: SERTRALINE HCL 50 MG TABLET (FP) PO SCH (09:41)
[2016-12-30] MEDS: NICOTINE 21 MG/24 HOURS TOPICAL PATCH TD SCH (09:41)
[2016-12-30] MEDS: QUEtiapine FUMARATE 50 MG TABLET PO SCH (09:41)
[2016-12-30] MEDS: PRENATAL VITAMINS W/ FOLIC ACID TABLET (FP) PO SCH (09:42)
[2016-12-30 10:48] LABS: ALBUMIN 3.6 g/dl (3.4-5.0); ALK PHOS 50 U/L (45-117); ANION GAP 7 (8-16); BILIRUBIN,TOTAL 0.3 mg/dL (0.2-1.0); CALCIUM 8.9 mg/dL (8.5-10.1); CO2 27 mmol/L (21-32); CREATININE 0.9 mg/dL (0.55-1.02); GLUCOSE,RANDOM 77 mg/dL (74-106); SGOT/AST 14 U/L (15-37); SGPT/ALT 18 U/L (12-78); TOT PROT 7.4 g/dl (6.4-8.2)
--- NOTE | 2016-12-30 12:03 | PN ---
[facility] Progress Note Note: New labs noted,anemia may cause some of the symptoms that pt. c/o Vital Signs - 8 hr 12/30/16 06:40 Temperature 97.6 F Pulse Rate 66 Respiratory 18 Rate Blood Pressure 111/71 Laboratory Tests 12/25/16 12/26/16 12/26/16 21:55 06:20 06:20 WBC 6.3 RBC 4.39 Hgb 9.5 L D Hct 31.3 L MCV 71.3 L MCHC 30.3 L RDW 23.4 H Plt Count 260 MPV 9.5 Hypochromic-Microcytic 4+ Poikilocytosis 1+ Anisocytosis 2+ Microcytosis 2+ Macrocytosis 1+ Target Cells 1+ Tear Drop Cells Rare Ovalocytes 1+ Morphology Comment Slide scanned Sodium 144 Potassium 4.1 Chloride 110 H Carbon Dioxide 27 Anion Gap 7 L BUN 13 Creatinine 1.1 H Creat Clearance w eGFR 53.24 POC Glucometer Random Glucose 87 Calcium 8.8 Total Bilirubin 0.2 AST 23 ALT 24 Alkaline Phosphatase 62 Total Protein 7.7 Albumin 4.0 Urine Color Dkyellow Urine Appearance Cloudy Urine pH 5.0 Ur Specific [place] 1.032 Urine Protein 1+ H Urine Glucose (UA) Negative Urine Ketones Trace H Urine Blood 1+ H Urine Nitrite Positive Urine Bilirubin Negative Urine Urobilinogen Negative Ur Leukocyte Esterase Negative Urine RBC 17 Urine WBC 7 Ur Epithelial Cells Moderate Calcium Oxalate Crystal Few Urine Bacteria Rare Urine Mucus Moderate RPR Titer 12/26/16 12/30/16 12/30/16 06:20 07:41 08:00 WBC RBC Hgb Hct MCV MCHC RDW Plt Count MPV Hypochromic-Microcytic Poikilocytosis Anisocytosis Microcytosis Macrocytosis Target Cells Tear Drop Cells Ovalocytes Morphology Comment Sodium 140 Potassium 4.1 Chloride 106 Carbon Dioxide 27 Anion Gap 7 L BUN 10 D Creatinine 0.9 Creat Clearance w eGFR > 60 POC Glucometer 100 Random Glucose 77 Calcium 8.9 Total Bilirubin 0.3 D AST 14 L D ALT 18 D Alkaline Phosphatase 50 Total Protein 7.4 Albumin 3.6 Urine Color Urine Appearance Urine pH Ur Specific [place] Urine Protein Urine Glucose (UA) Urine Ketones Urine Blood Urine Nitrite Urine Bilirubin Urine Urobilinogen Ur Leukocyte Esterase Urine RBC Urine WBC Ur Epithelial Cells Calcium Oxalate Crystal Urine Bacteria Urine Mucus RPR Titer Nonreactive U/A noted P : feosol TID
[2016-12-30] MEDS: FERROUS SO4 325 MG TABLET (FP) PO SCH ×2 (12:58→17:40)
--- NOTE | 2016-12-30 17:22 | PN ---
[facility] Progress Note Note: patient was discharge today.She didnt meet her treatment goals and will continue to address her issues on outpatient basis. Patient was in stable condition.See staff notes for details.
== END 2016-12-30 18:06 | disposition home or self-care (01) | DRG 772 ==
LOC: YASAS 14:05 → Y3E 18:13
PROVIDERS: ADMIT Psychiatry & Neurology Psychiatry; ATTEND Psychiatry & Neurology Psychiatry
PROC: HZ42ZZZ Group Counseling for Substance Abuse Treatment, Cognitive-Behavioral (ICD-10-PCS; principal; 2016-12-30)
DX: F10.230 Alcohol dependence with withdrawal, uncomplicated (principal); F14.20 Cocaine dependence, uncomplicated; F12.20 Cannabis dependence, uncomplicated; F17.210 Nicotine dependence, cigarettes, uncomplicated; F20.9 Schizophrenia, unspecified; R55 Syncope and collapse
CPT/HCPCS: 36415; 80053; 81003; 81015; 85027; 86593; 93005; 93010

== ENCOUNTER 2018-03-26 10:11 | Inpatient (IN) | payer OTHER ==
[2018-03-26 11:11] VITALS: BMI 25.0
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
[2018-03-26] MEDS ORDERED: guaiFENesin/D-METHORPHAN HB 10 ML UNIT-DOSE CUPS PO PRN (12:34)
[2018-03-26] MEDS ORDERED: P-EPHED 60MG/TRIPROLIDI 2.5MG TABLET PO PRN (12:34)
[2018-03-26] MEDS ORDERED: hydrOXYzine PAMOATE 25 MG CAPSULE (FP) PO PRN (12:34)
[2018-03-26] MEDS ORDERED: MENTHOL/PHENOL 1 EACH UD MM PRN (12:34)
[2018-03-26] MEDS ORDERED: ACETAMINOPHEN 325 MG TABLET (FP) PO PRN (12:34)
[2018-03-26] MEDS ORDERED: chlordiazePOXIDE HCL 25 MG CAPSULE PO PRN (12:34)
[2018-03-26] MEDS ORDERED: MAG HYDROX/AL HYDROX/SIMETH 30 ML UNIT-DOSE CUP PO PRN (12:34)
[2018-03-26] MEDS ORDERED: MAGNESIUM HYDROX 2400MG/30ML ORAL SUSPENSION 30 ML CUP PO PRN (12:34)
[2018-03-26] MEDS ORDERED: MAGNESIUM CITRATE 300 ML BOTTLE PO PRN (12:34)
[2018-03-26] MEDS ORDERED: LOPERAMIDE HCL 2 MG CAPSULE PO PRN (12:34)
[2018-03-26] MEDS ORDERED: IBUPROFEN 400 MG TABLET (FP) PO PRN (12:34)
[2018-03-26] MEDS ORDERED: chlordiazePOXIDE HCL 25 MG CAPSULE PO ONE (13:00)
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
[2018-03-26] MEDS: chlordiazePOXIDE HCL 25 MG CAPSULE PO SCH ×2 (17:32→22:11)
[2018-03-26] MEDS ORDERED: MELATONIN 5 MG TABLETS PO PRN (22:00)
[2018-03-26] MEDS: THIAMINE HCL 100 MG TABLET (FP) PO SCH (22:10)
[2018-03-26] MEDS: PRAZOSIN HCL 1 MG CAPSULE PO SCH (22:10)
[2018-03-26] MEDS: HALOPERIDOL 1 MG TABLET (FP) PO SCH (22:10)
[2018-03-26 23:57] LABS: URINE APPEARANCE CLEAR; URINE BILIRUBIN NEGATIVE (<2.0 mg/dL); URINE COLOR LTYELLOW; URINE GLUCOSE (UA) NEGATIVE (NEGATIVE); URINE KETONE NEGATIVE (NEGATIVE); URINE LEUK ESTERASE NEGATIVE (NEGATIVE); URINE NITRITE POSITIVE (NEGATIVE); URINE PROTEIN NEGATIVE (NEGATIVE); URINE UROBILINOGEN NEGATIVE mg/dL (0.2-1.0)
[2018-03-27 00:35] LABS: EPI CELLS RARE /HPF (FEW); URINE BACTERIA MANY /hpf (NONE SEEN); URINE MUCUS RARE
[2018-03-27] MEDS: chlordiazePOXIDE HCL 25 MG CAPSULE PO SCH ×4 (05:42→22:11)
[2018-03-27 09:59] LABS: CHLORIDE 107 mmol/L (98-107); POTASSIUM 3.9 mmol/L (3.5-5.1); SODIUM 142 mmol/L (136-145)
[2018-03-27 10:01] LABS: HEMATOCRIT 34.3 % (32.4-45.2); HEMOGLOBIN 10.7 GM/dL (10.7-15.3); MCH 23.1 pg (25.7-33.7); MCHC 31.3 g/dl (32.0-36.0); MEAN PLT VOLUME 9.4 fl (7.5-11.1); PLATELET COUNT 270 K/MM3 (134-434); RBC 4.64 M/mm3 (3.60-5.2); RDW 18.2 % (11.6-15.6); WHITE BLOOD COUNT 4.8 K/mm3 (4.0-10.0)
[2018-03-27 10:08] LABS: ALBUMIN 3.9 g/dl (3.4-5.0); ALK PHOS 65 U/L (45-117); ANION GAP 8 (8-16); BILIRUBIN,TOTAL 0.2 mg/dL (0.2-1.0); BLOOD UREA NITROGEN 8 mg/dL (7-18); CALCIUM 9.5 mg/dL (8.5-10.1); CO2 27 mmol/L (21-32); GLUCOSE,RANDOM 92 mg/dL (74-106); SGOT/AST 20 U/L (15-37); SGPT/ALT 15 U/L (12-78); TOT PROT 8.5 g/dl (6.4-8.2)
[2018-03-27] MEDS: PRENATAL VITAMINS W/ FOLIC ACID TABLET (FP) PO SCH (10:14)
[2018-03-27] MEDS: SERTRALINE HCL 50 MG TABLET (FP) PO SCH (10:14)
--- NOTE | 2018-03-27 10:17 | PN ---
S CIWA - CIWA Score Nausea/Vomitin-Mild Nausea/No Vomiting Muscle Tremors: 4-Moderate,w/Arms Extend Anxiety: 3 Agitation: 3 Paroxysmal Sweats: 1-Minimal Palms Moist Orientation: 0-Oriented Tacttile Disturbances: 1-Very Mild Itch/Numbness Auditory Disturbances: 0-None Visual Disturbances: 0-None Headache: 1-Very Mild CIWA-Ar Total Score: 14 BHS Progress Note (SOAP) Subjective: sweat tremor anxiety restlessness irritable patient reported that she placed her denture on breakfast tray and dump in the garbage this morning garbage had been comb through Objective: 03/27/18 10:17 Vital Signs Temperature 97.1 F L 03/27/18 09:23 Pulse Rate 88 03/27/18 09:23 Respiratory Rate 16 03/27/18 09:23 Blood Pressure 111/73 03/27/18 09:23 O2 Sat by Pulse Oximetry (%) Laboratory Last Values WBC 4.8 K/mm3 (4.0-10.0) 03/27/18 05:45 RBC 4.64 M/mm3 (3.60-5.2) 03/27/18 05:45 Hgb 10.7 GM/dL (10.7-15.3) D 03/27/18 05:45 Hct 34.3 % (32.4-45.2) 03/27/18 05:45 MCV 74.0 fl (80-96) L 03/27/18 05:45 MCH 23.1 pg (25.7-33.7) L 03/27/18 05:45 MCHC 31.3 g/dl (32.0-36.0) L 03/27/18 05:45 RDW 18.2 % (11.6-15.6) H 03/27/18 05:45 Plt Count 270 K/MM3 (134-434) 03/27/18 05:45 MPV 9.4 fl (7.5-11.1) 03/27/18 05:45 Sodium 142 mmol/L (136-145) 03/27/18 05:45 Potassium 3.9 mmol/L (3.5-5.1) 03/27/18 05:45 Chloride 107 mmol/L (98-107) 03/27/18 05:45 Carbon Dioxide 27 mmol/L (21-32) 03/27/18 05:45 Anion Gap 8 (8-16) 03/27/18 05:45 BUN 8 mg/dL (7-18) 03/27/18 05:45 Creatinine 1.0 mg/dL (0.55-1.02) 03/27/18 05:45 Creat Clearance w eGFR 59.18 (>60) 03/27/18 05:45 Random Glucose 92 mg/dL (74-106) 03/27/18 05:45 Calcium 9.5 mg/dL (8.5-10.1) 03/27/18 05:45 Total Bilirubin 0.2 mg/dL (0.2-1.0) D 03/27/18 05:45 AST 20 U/L (15-37) 03/27/18 05:45 ALT 15 U/L (12-78) 03/27/18 05:45 Alkaline Phosphatase 65 U/L (45-117) 03/27/18 05:45 Total Protein 8.5 g/dl (6.4-8.2) H 03/27/18 05:45 Albumin 3.9 g/dl (3.4-5.0) 03/27/18 05:45 Urine Color Ltyellow 03/26/18 Unknown Urine Appearance Clear 03/26/18 Unknown Urine pH 6.0 (5.0-8.0) 03/26/18 Unknown Ur Specific [place] 1.005 (1.001-1.035) 03/26/18 Unknown Urine Protein Negative (NEGATIVE) 03/26/18 Unknown Urine Glucose (UA) Negative (NEGATIVE) 03/26/18 Unknown Urine Ketones Negative (NEGATIVE) 03/26/18 Unknown Urine Blood 1+ (NEGATIVE) H 03/26/18 Unknown Urine Nitrite Positive (NEGATIVE) 03/26/18 Unknown Urine Bilirubin Negative (<2.0 mg/dL) 03/26/18 Unknown Urine Urobilinogen Negative mg/dL (0.2-1.0) 03/26/18 Unknown Ur Leukocyte Esterase Negative (NEGATIVE) 03/26/18 Unknown Urine WBC (Auto) 1 /hpf (3-5) 03/26/18 Unknown Urine RBC (Auto) <1 /hpf (0-3) 03/26/18 Unknown Ur Epithelial Cells Rare /HPF (FEW) 03/26/18 Unknown Urine Bacteria Many /hpf (NONE SEEN) 03/26/18 Unknown Urine Mucus Rare 03/26/18 Unknown HIV 1&2 Antibody Screen Negative 03/26/18 12:30 HIV P24 Antigen Negative 03/26/18 12:30 lab noted gfr 59 Assessment: 03/27/18 10:17 withdrawal sx missing denture Plan: continue detox missing denture discussed with nurse that the patient wants full upper and lower denture replacement emotional support given patient refuses soft diet able to chew regular food
--- NOTE | 2018-03-27 16:34 | EKG ---
Test Reason : Blood Pressure : / mmHG Vent. Rate : 068 BPM Atrial Rate : 068 BPM P-R Int : 162 ms QRS Dur : 084 ms QT Int : 356 ms P-R-T Axes : 069 049 054 degrees QTc Int : 378 ms NORMAL SINUS RHYTHM POSSIBLE LEFT ATRIAL ENLARGEMENT NONSPECIFIC T WAVE ABNORMALITY ABNORMAL ECG WHEN COMPARED WITH ECG OF 25-DEC-2016 22:18, NO SIGNIFICANT CHANGE WAS FOUND Confirmed by NEFTALY HARPER, DULCE ([id number]) on 03/27/2018 4:34:39 PM Referred By: Confirmed By:DULCE HIGGINBOTHAM MD
[2018-03-27] MEDS: HALOPERIDOL 1 MG TABLET (FP) PO SCH (22:11)
[2018-03-27] MEDS: PRAZOSIN HCL 1 MG CAPSULE PO SCH (22:11)
[2018-03-27] MEDS: THIAMINE HCL 100 MG TABLET (FP) PO SCH (22:11)
[2018-03-28] MEDS: chlordiazePOXIDE HCL 25 MG CAPSULE PO SCH ×2 (06:12→10:43)
[2018-03-28] MEDS: PRENATAL VITAMINS W/ FOLIC ACID TABLET (FP) PO SCH (10:43)
[2018-03-28] MEDS: SERTRALINE HCL 50 MG TABLET (FP) PO SCH (10:43)
--- NOTE | 2018-03-28 13:27 | PN ---
S CIWA - CIWA Score Nausea/Vomitin-Mild Nausea/No Vomiting Muscle Tremors: 4-Moderate,w/Arms Extend Anxiety: 3 Agitation: 3 Paroxysmal Sweats: 1-Minimal Palms Moist Orientation: 0-Oriented Tacttile Disturbances: 1-Very Mild Itch/Numbness Auditory Disturbances: 0-None Visual Disturbances: 0-None Headache: 0-None Present CIWA-Ar Total Score: 13 BHS Progress Note (SOAP) Subjective: sweat tremor irritable trouble sleep at night anxiety restlessness Objective: 03/28/18 13:25 Vital Signs Temperature 97.9 F 03/28/18 09:45 Pulse Rate 100 H 03/28/18 09:45 Respiratory Rate 18 03/28/18 09:45 Blood Pressure 124/76 03/28/18 09:45 O2 Sat by Pulse Oximetry (%) Laboratory Last Values WBC 4.8 K/mm3 (4.0-10.0) 03/27/18 05:45 RBC 4.64 M/mm3 (3.60-5.2) 03/27/18 05:45 Hgb 10.7 GM/dL (10.7-15.3) D 03/27/18 05:45 Hct 34.3 % (32.4-45.2) 03/27/18 05:45 MCV 74.0 fl (80-96) L 03/27/18 05:45 MCH 23.1 pg (25.7-33.7) L 03/27/18 05:45 MCHC 31.3 g/dl (32.0-36.0) L 03/27/18 05:45 RDW 18.2 % (11.6-15.6) H 03/27/18 05:45 Plt Count 270 K/MM3 (134-434) 03/27/18 05:45 MPV 9.4 fl (7.5-11.1) 03/27/18 05:45 Sodium 142 mmol/L (136-145) 03/27/18 05:45 Potassium 3.9 mmol/L (3.5-5.1) 03/27/18 05:45 Chloride 107 mmol/L (98-107) 03/27/18 05:45 Carbon Dioxide 27 mmol/L (21-32) 03/27/18 05:45 Anion Gap 8 (8-16) 03/27/18 05:45 BUN 8 mg/dL (7-18) 03/27/18 05:45 Creatinine 1.0 mg/dL (0.55-1.02) 03/27/18 05:45 Creat Clearance w eGFR 59.18 (>60) 03/27/18 05:45 Random Glucose 92 mg/dL (74-106) 03/27/18 05:45 Calcium 9.5 mg/dL (8.5-10.1) 03/27/18 05:45 Total Bilirubin 0.2 mg/dL (0.2-1.0) D 03/27/18 05:45 AST 20 U/L (15-37) 03/27/18 05:45 ALT 15 U/L (12-78) 03/27/18 05:45 Alkaline Phosphatase 65 U/L (45-117) 03/27/18 05:45 Total Protein 8.5 g/dl (6.4-8.2) H 03/27/18 05:45 Albumin 3.9 g/dl (3.4-5.0) 03/27/18 05:45 Urine Color Ltyellow 03/26/18 Unknown Urine Appearance Clear 03/26/18 Unknown Urine pH 6.0 (5.0-8.0) 03/26/18 Unknown Ur Specific [place] 1.005 (1.001-1.035) 03/26/18 Unknown Urine Protein Negative (NEGATIVE) 03/26/18 Unknown Urine Glucose (UA) Negative (NEGATIVE) 03/26/18 Unknown Urine Ketones Negative (NEGATIVE) 03/26/18 Unknown Urine Blood 1+ (NEGATIVE) H 03/26/18 Unknown Urine Nitrite Positive (NEGATIVE) 03/26/18 Unknown Urine Bilirubin Negative (<2.0 mg/dL) 03/26/18 Unknown Urine Urobilinogen Negative mg/dL (0.2-1.0) 03/26/18 Unknown Ur Leukocyte Esterase Negative (NEGATIVE) 03/26/18 Unknown Urine WBC (Auto) 1 /hpf (3-5) 03/26/18 Unknown Urine RBC (Auto) <1 /hpf (0-3) 03/26/18 Unknown Ur Epithelial Cells Rare /HPF (FEW) 03/26/18 Unknown Urine Bacteria Many /hpf (NONE SEEN) 03/26/18 Unknown Urine Mucus Rare 03/26/18 Unknown RPR Titer Nonreactive (NONREACTIVE) 03/27/18 05:45 HIV 1&2 Antibody Screen Negative 03/26/18 12:30 HIV P24 Antigen Negative 03/26/18 12:30 lab noted Assessment: 03/28/18 13:26 withdrawal sx Plan: continue detox increase oral fluid
[2018-03-28] MEDS: chlordiazePOXIDE 5 MG CAPSULE PO SCH ×2 (17:51→22:08)
[2018-03-28] MEDS ORDERED: PT OWN MED DRAWER 7, Y5N ONE (19:42)
[2018-03-28] MEDS: HALOPERIDOL 1 MG TABLET (FP) PO SCH (22:08)
[2018-03-28] MEDS: PRAZOSIN HCL 1 MG CAPSULE PO SCH (22:08)
[2018-03-28] MEDS: THIAMINE HCL 100 MG TABLET (FP) PO SCH (22:08)
[2018-03-29] MEDS: chlordiazePOXIDE 5 MG CAPSULE PO SCH ×2 (06:03→10:32)
[2018-03-29] MEDS: SERTRALINE HCL 50 MG TABLET (FP) PO SCH (10:32)
[2018-03-29] MEDS: PRENATAL VITAMINS W/ FOLIC ACID TABLET (FP) PO SCH (10:32)
--- NOTE | 2018-03-29 13:42 | PN ---
S Progress Note (SOAP) Subjective: ALERT,IRRITABLE,ANXIOUS,INTERRUPTED SLEEP, Objective: 03/29/18 13:41 Vital Signs Temperature 97.9 F 03/29/18 09:41 Pulse Rate 71 03/29/18 09:41 Respiratory Rate 16 03/29/18 09:41 Blood Pressure 100/61 03/29/18 09:41 O2 Sat by Pulse Oximetry (%) Assessment: 03/29/18 13:41 WITHDRAWAL SYMPTOM Plan: CONTINUE DETOX,DISCHARGE IN AM
--- NOTE | 2018-03-29 17:35 | EKG ---
Test Reason : Blood Pressure : / mmHG Vent. Rate : 071 BPM Atrial Rate : 071 BPM P-R Int : 160 ms QRS Dur : 084 ms QT Int : 376 ms P-R-T Axes : 070 052 064 degrees QTc Int : 408 ms NORMAL SINUS RHYTHM POSSIBLE LEFT ATRIAL ENLARGEMENT NONSPECIFIC T WAVE ABNORMALITY ABNORMAL ECG WHEN COMPARED WITH ECG OF 26-MAR-2018 14:03, NO SIGNIFICANT CHANGE WAS FOUND Confirmed by SANAM HARPER, LOGAN ([id number]) on 03/29/2018 5:35:38 PM Referred By: Confirmed By:LOGAN MARION MD
[2018-03-29] MEDS: chlordiazePOXIDE HCL 10 MG CAPSULE PO SCH ×2 (18:23→22:05)
[2018-03-29] MEDS: THIAMINE HCL 100 MG TABLET (FP) PO SCH (22:04)
[2018-03-29] MEDS: PRAZOSIN HCL 1 MG CAPSULE PO SCH (22:05)
[2018-03-29] MEDS: HALOPERIDOL 1 MG TABLET (FP) PO SCH (22:05)
[2018-03-30] MEDS: chlordiazePOXIDE HCL 10 MG CAPSULE PO SCH ×2 (05:45→10:38)
--- NOTE | 2018-03-30 09:25 | PN ---
S Progress Note (SOAP) Subjective: alert,no complaint Objective: 03/30/18 09:24 Vital Signs Temperature 97.9 F 03/30/18 09:23 Pulse Rate 71 03/30/18 09:23 Respiratory Rate 20 03/30/18 09:23 Blood Pressure 111/64 03/30/18 09:23 O2 Sat by Pulse Oximetry (%) Assessment: 03/30/18 09:24 detox completed,no withdrawal symptom Plan: discharge today,follow up with [facility] as arrangement
--- NOTE | 2018-03-30 09:27 | DS ---
[facility] Detox Discharge Summary Admission Date: 03/26/18 Discharge Date: 03/30/18 - History Present History: Alcohol Dependence, Cannabis Dependence, Cocaine Dependence Additional Comments: follow up with after care program as arrangement Pertinent Past History: nicotine dependence schizophrenia weight loss - Physical Exam Results Vital Signs: Vital Signs Temperature 97.9 F 03/30/18 09:23 Pulse Rate 71 03/30/18 09:23 Respiratory Rate 20 03/30/18 09:23 Blood Pressure 111/64 03/30/18 09:23 O2 Sat by Pulse Oximetry (%) Pertinent Admission Physical Exam Findings: withdrawal signs and symptom Laboratory Last Values WBC 4.8 K/mm3 (4.0-10.0) 03/27/18 05:45 RBC 4.64 M/mm3 (3.60-5.2) 03/27/18 05:45 Hgb 10.7 GM/dL (10.7-15.3) D 03/27/18 05:45 Hct 34.3 % (32.4-45.2) 03/27/18 05:45 MCV 74.0 fl (80-96) L 03/27/18 05:45 MCH 23.1 pg (25.7-33.7) L 03/27/18 05:45 MCHC 31.3 g/dl (32.0-36.0) L 03/27/18 05:45 RDW 18.2 % (11.6-15.6) H 03/27/18 05:45 Plt Count 270 K/MM3 (134-434) 03/27/18 05:45 MPV 9.4 fl (7.5-11.1) 03/27/18 05:45 Sodium 142 mmol/L (136-145) 03/27/18 05:45 Potassium 3.9 mmol/L (3.5-5.1) 03/27/18 05:45 Chloride 107 mmol/L (98-107) 03/27/18 05:45 Carbon Dioxide 27 mmol/L (21-32) 03/27/18 05:45 Anion Gap 8 (8-16) 03/27/18 05:45 BUN 8 mg/dL (7-18) 03/27/18 05:45 Creatinine 1.0 mg/dL (0.55-1.02) 03/27/18 05:45 Creat Clearance w eGFR 59.18 (>60) 03/27/18 05:45 Random Glucose 92 mg/dL (74-106) 03/27/18 05:45 Calcium 9.5 mg/dL (8.5-10.1) 03/27/18 05:45 Total Bilirubin 0.2 mg/dL (0.2-1.0) D 03/27/18 05:45 AST 20 U/L (15-37) 03/27/18 05:45 ALT 15 U/L (12-78) 03/27/18 05:45 Alkaline Phosphatase 65 U/L (45-117) 03/27/18 05:45 Total Protein 8.5 g/dl (6.4-8.2) H 03/27/18 05:45 Albumin 3.9 g/dl (3.4-5.0) 03/27/18 05:45 Urine Color Ltyellow 03/26/18 Unknown Urine Appearance Clear 03/26/18 Unknown Urine pH 6.0 (5.0-8.0) 03/26/18 Unknown Ur Specific [place] 1.005 (1.001-1.035) 03/26/18 Unknown Urine Protein Negative (NEGATIVE) 03/26/18 Unknown Urine Glucose (UA) Negative (NEGATIVE) 03/26/18 Unknown Urine Ketones Negative (NEGATIVE) 03/26/18 Unknown Urine Blood 1+ (NEGATIVE) H 03/26/18 Unknown Urine Nitrite Positive (NEGATIVE) 03/26/18 Unknown Urine Bilirubin Negative (<2.0 mg/dL) 03/26/18 Unknown Urine Urobilinogen Negative mg/dL (0.2-1.0) 03/26/18 Unknown Ur Leukocyte Esterase Negative (NEGATIVE) 03/26/18 Unknown Urine WBC (Auto) 1 /hpf (3-5) 03/26/18 Unknown Urine RBC (Auto) <1 /hpf (0-3) 03/26/18 Unknown Ur Epithelial Cells Rare /HPF (FEW) 03/26/18 Unknown Urine Bacteria Many /hpf (NONE SEEN) 03/26/18 Unknown Urine Mucus Rare 03/26/18 Unknown RPR Titer Nonreactive (NONREACTIVE) 03/27/18 05:45 HIV 1&2 Antibody Screen Negative 03/26/18 12:30 HIV P24 Antigen Negative 03/26/18 12:30 - Treatment Hospital Course: Detox Protocol Followed, Detoxed Safely, Responded well, Discharged Condition Good Patient has Accepted a Rehab Referral to: [facility] - Medication Discharge Medications: Ambulatory Orders Prazosin HCl [Minipress -] 2 mg PO HS 12/13/16 Sertraline HCl [Zoloft -] 100 mg PO DAILY 12/13/16 Haloperidol [Haldol -] 1 mg PO HS #30 tablet 12/30/16 - Diagnosis (1) Alcohol dependence with uncomplicated withdrawal Current Visit: Yes Status: Acute (2) Cannabis dependence Current Visit: Yes Status: Acute (3) Cocaine dependence Current Visit: Yes Status: Acute Qualifiers: (4) Drug-induced mood disorder Current Visit: Yes Status: Acute (5) Nicotine dependence Current Visit: Yes Status: Acute Qualifiers: (6) Schizophrenia Current Visit: Yes Status: Chronic Qualifiers: (7) Syncope Current Visit: No Status: Chronic (8) Weight loss Current Visit: Yes Status: Acute - AMA Did Patient Leave Against Medical Advice: No
[2018-03-30] MEDS: SERTRALINE HCL 50 MG TABLET (FP) PO SCH (10:38)
[2018-03-30] MEDS: PRENATAL VITAMINS W/ FOLIC ACID TABLET (FP) PO SCH (10:38)
[2018-03-30 14:21] VITALS: BP 111/69; PULSE 81; TEMP 98.1
== END 2018-03-30 13:59 | disposition home or self-care (01) | DRG 774 ==
LOC: YASAS 10:11 → Y6N 12:46
PROVIDERS: ADMIT Surgery; ATTEND Surgery
PROC: HZ2ZZZZ Detoxification Services for Substance Abuse Treatment (ICD-10-PCS; principal; 2018-03-26)
DX: F10.20 Alcohol dependence, uncomplicated (principal); F14.20 Cocaine dependence, uncomplicated; F12.20 Cannabis dependence, uncomplicated; F17.213 Nicotine dependence, cigarettes, with withdrawal; F20.9 Schizophrenia, unspecified; F19.24 Other psychoactive substance dependence with psychoactive substance-induced mood disorder; F43.10 Post-traumatic stress disorder, unspecified; G47.00 Insomnia, unspecified; R63.4 Abnormal weight loss; Z68.25 Body mass index [BMI] 25.0-25.9, adult; Z91.5 Personal history of self-harm
CPT/HCPCS: 36415; 80053; 81003; 81015; 85027; 86593; 87389; 93005; 93010